=== PATIENT | male | born 1965 | race Caucasian/White ===

== ENCOUNTER 2023-09-08 06:06 | Day surgery (SDC) | payer BC ==
[2023-09-03 11:57] VITALS: BMI 24.4
[2023-09-08] MEDS ORDERED: Bupivacaine PF 0.5% 30 ML VIAL ONE (06:25)
[2023-09-08] MEDS ORDERED: EPINEPHrine 1 MG/ML VIAL ONE (06:25)
[2023-09-08] MEDS ORDERED: CEFAZOLIN 2 GM VIAL ONE (06:47)
[2023-09-08] MEDS ORDERED: PROPOFOL 20 ML ONE (07:05)
[2023-09-08] MEDS ORDERED: fentaNYL 50 mcg/mL 1 mL Vial ONE (07:05)
[2023-09-08] MEDS ORDERED: Lidocaine 1% PF 5 ML VIAL ONE (07:05)
[2023-09-08] MEDS ORDERED: Dexamethasone 4 mg/ml Vial ONE (07:13)
[2023-09-08] MEDS ORDERED: Ondansetron PF 4 MG/2 ML Vial ONE (07:13)
[2023-09-08] MEDS ORDERED: oxyCODONE 5 MG TAB ONE (08:15)
== END 2023-09-08 09:00 | disposition home or self-care (01) ==
LOC: CSHSDC 06:06
PROVIDERS: ATTEND Surgery
PROC: 0JH60WZ Insertion of Totally Implantable Vascular Access Device into Chest Subcutaneous Tissue and Fascia, Open Approach (ICD-10-PCS; principal; 2023-09-08)
DX: C21.1 Malignant neoplasm of anal canal (principal)
CPT/HCPCS: 71045; A6258; C1788; J0171; J0665; J1100; J1642; J2405; J2704; J3010